=== PATIENT | male | born 1940 | race Caucasian/White ===

== ENCOUNTER 2025-08-02 16:20 | Observation (INO) | payer MEDICARE, SELFPAY ==
[2025-08-02] VITALS (9 sets, daily range): BP systolic 124–148; BP diastolic 50–78; PULSE 58–69; RESP 16–18; TEMP 36.4–37.1; O2SAT 95–100; BMI 43.0; BMI 38.9
--- NOTE | 2025-08-02 16:23 | HMH.EDGENADL ---
Discharge Plan Disposition Patient Disposition: Admitted Condition: Fair Clinical Impressions Clinical Impression: DEMARCO (acute kidney injury), Hyperkalemia Discharge ED Provider: Santa Connolly General Adult HPI <ROLO Tracey - Last Filed: 08/02/25 19:04> General Chief complaint: Weakness Stated complaint: Abnormal Labs Time Seen by Provider: 08/02/25 16:22 Mode of Arrival: EMS Source of Information: Patient and Medical Record Limitations: No Limitations History of Present Illness HPI narrative: 85-year-old male presents to the emergency department at the request of his skilled nursing facility via EMS for abnormal laboratory studies. Patient had what appears to be CBC and CMP that were drawn initially on 07/25/2025, found to have a leukocytosis of 13.6 on CBC, acute kidney injury with a BUN of 55 and creatinine 2.6, potassium was 5.8 at that time, patient had additional laboratory studies drawn to include what appears to be a basic metabolic panel, on 08/01/2025, hyperkalemia noted at 6, BUN and creatinine still significant for acute versus chronic kidney injury at 58 and 2.6 respectively patient endorses generalized weakness and fatigue for the last couple of days, denies any fever chills cough congestion shortness of breath nausea vomiting constipation diarrhea no abdominal pain no urinary symptomatology, patient does endorse some tailbone , pain, he states has been going on for quite some time. Patient is a former smoker, denies any alcohol or drug use, other past medical history consistent with hyperlipidemia, CKD stage III, prior CABG, T2DM, gout, hyperlipidemia, CAD, patient is on anticoagulant therapy with Eliquis, for atrial fibrillation, BPH, GERD, osteoarthritis, initial triage vitals are unremarkable. Please note that above description of symptoms, in this electronic medical record under categorization of recalled from ER triage doctor by RN are reflective of an initial nursing assessment, however, is not reflective of my full history and physical exam that was personally taken and clarified. Consequentially, this preceding description of symptoms, which may include the patient's categorized chief complaint in the EMR, do not reflect my personal clinical impression, and the ultimate description of history of present illness and patient stated complaints should be deferred to this section of the note. Unless stated otherwise or congruent with this section of the note, additional signs, symptoms, or incongruence should be interpreted as inaccurate with my clinical impression. Onset (ago): day(s) Related Data Home Medications ?Medication ?Instructions ?Recorded ?Confirmed acetaminophen 325 mg tablet 650 mg PO QID PRN fever/pain 08/02/25 08/02/25 allopurinol 200 mg tablet 200 mg PO DAILY 08/02/25 08/02/25 ammonium lactate 12 % lotion 1 applic topical DAILY 08/02/25 08/02/25 apixaban 2.5 mg tablet (Eliquis) 2.5 mg PO BID 08/02/25 08/02/25 atorvastatin 80 mg tablet 80 mg PO DAILY 08/02/25 08/02/25 bumetanide 1 mg tablet 1 mg PO DAILY 08/02/25 08/02/25 carvedilol 6.25 mg tablet 6.25 mg PO BID 08/02/25 08/02/25 cetirizine 10 mg tablet 10 mg PO DAILY 08/02/25 08/02/25 cholecalciferol (vitamin D3) 50 50 mcg PO DAILY 08/02/25 08/02/25 mcg (2,000 unit) tablet clopidogrel 75 mg tablet 75 mg PO DAILY 08/02/25 08/02/25 ezetimibe 10 mg tablet 10 mg PO DAILY 08/02/25 08/02/25 finasteride 5 mg tablet 5 mg PO HS 08/02/25 08/02/25 gabapentin 300 mg capsule 300 mg PO BID 08/02/25 08/02/25 insulin NPH isoph U-100 human 100 60 unit SQ BID 08/02/25 08/02/25 unit/mL (3 mL) subcutaneous pen (Novolin N FlexPen) isosorbide mononitrate 60 mg 60 mg PO DAILY 08/02/25 08/02/25 tablet,extended release 24 hr melatonin 3 mg tablet 3 mg PO HS PRN Sleep 08/02/25 08/02/25 meloxicam 15 mg tablet 15 mg PO DAILY 08/02/25 08/02/25 multivitamin 1 tab PO DAILY 08/02/25 08/02/25 omeprazole 20 mg tablet,delayed 20 mg PO DAILY 08/02/25 08/02/25 release ondansetron 4 mg disintegrating 4 mg PO Q8H 08/02/25 08/02/25 tablet oxycodone-acetaminophen 5 mg-325 1 tab PO Q6H PRN Pain (Scale Score 08/02/25 08/02/25 mg tablet 7-10) spironolactone 25 mg tablet 25 mg PO DAILY 08/02/25 08/02/25 tamsulosin 0.4 mg capsule 0.4 mg PO DAILY 08/02/25 08/02/25 telmisartan 20 mg tablet 20 mg PO DAILY 08/02/25 08/02/25 tirzepatide 2.5 mg/0.5 mL 2.5 mg SQ WEEKLY 08/02/25 08/02/25 subcutaneous pen injector (Mounjaro) tizanidine 4 mg tablet 4 mg PO HS PRN Muscle Spasm 08/02/25 08/02/25 Allergies Allergy/AdvReac Type Severity Reaction Status Date / Time No Known Allergies Allergy Verified 08/02/25 16:38 [facility] <ROLO Tracey - Last Filed: 08/02/25 19:04> [facility] Disclaimer: The information contained in this section may have been updated after the patient was seen, as this information can be updated by other users. Medical History (Updated 08/02/25 @ 22:10 by Everette Azevedo APRN) Prostate cancer History of left heart catheterization Osteoarthritis GERD (gastroesophageal reflux disease) BPH (benign prostatic hyperplasia) Afib CAD (coronary artery disease) Gout Diabetes CKD (chronic kidney disease) stage 3, GFR 30-59 ml/min Hyperlipidemia Surgical History (Updated 08/02/25 @ 21:24 by Rachelle Armstrong RN) Hx of CABG Social History (Updated 08/02/25 @ 22:03 by Laury Miner RN) Smoking Status: Former smoker alcohol intake: never current occupational status: retired Travel in the last 8 weeks?: None Have you lived/traveled outside US in past 30 days?: No Contact w/someone who lives/traveled outside US past 30 days?: No Exposure to someone with infectious disease in past 14 days?: No Do you have a fever (greater than 100.4 F or 38 C)?: No Have you tested positive for COVID-19?: No Exposed to someone with COVID-19 in past 14 days?: No Do you have a sore throat?: No Do you have a cough?: No Do you have any weakness?: No Are you experiencing any nausea/vomitting?: No Do you have any diarrhea?: No Are you experiencing any unusual bleeding?: No Do you have any muscle aches/pain?: No Do you have any abdominal pain?: No Are you experiencing loss of taste or smell?: No <ROLO Tracey - Last Filed: 08/02/25 19:04> ROS Obtained: Yes All systems reviewed & no additional complaints except as documented Physical Exam <ROLO Tracey - Last Filed: 08/02/25 19:04> General General appearance: alert and in no apparent distress Head Head exam: atraumatic and normocephalic Eye Eye exam: Present PERRL and EOMI ENT ENT exam: Present mucous membranes moist Neck Neck exam: Present normal inspection Chest Chest inspection: Present normal inspection and symmetric chest wall rise Respiratory Respiratory exam: Present normal lung sounds bilaterally; Absent respiratory distress Cardiovascular Cardiovascular exam: Present regular rate and normal rhythm Abdominal Exam Abdominal exam: Present soft; Absent tenderness, guarding, rebound or rigidity Extremities Exam Extremities exam: Present normal inspection Neurological Exam Neurological exam: Present alert and oriented X3 Psychiatric Psychiatric exam: Present normal affect Skin Skin exam: Present warm and dry Medical Decision Making <ROLO Tracey - Last Filed: 08/02/25 19:04> Medical Records Medical records reviewed: Yes I reviewed the patient's medical records. Screening: Per USPSTF and CDC recommendations, given the prevalence of disease in our region, it is our hospital?s policy to screen for HIV and viral Hepatitis for all patients aged 18 and over and those with ongoing risk factors. Edgar Inquiry Pt receiving controlled substance: No Edgar was queried for this patient: No Vital Signs: 08/02/25 16:29 08/02/25 16:30 08/02/25 16:30 Temperature 98.0 F 98.0 F Temperature Source Oral Pulse Rate 66 65 Pulse Rate [Right] 65 Respiratory Rate 16 16 Blood Pressure 134/56 L 134/56 L Blood Pressure [Right Arm] 134/56 L Blood Pressure Mean Blood Pressure Mean [Right Arm] 82 02 Sat by Pulse Oximetry 95 95 95 Oxygen Delivery Method 08/02/25 16:45 08/02/25 17:00 08/02/25 17:16 Temperature Temperature Source Pulse Rate 61 63 69 Pulse Rate [Right] Respiratory Rate 16 Blood Pressure 124/53 L 128/56 L 128/50 L Blood Pressure [Right Arm] Blood Pressure Mean 76 Blood Pressure Mean [Right Arm] 02 Sat by Pulse Oximetry 96 98 98 Oxygen Delivery Method 08/02/25 17:30 08/02/25 17:45 08/02/25 21:35 Temperature 98.8 F Temperature Source Pulse Rate 63 60 60 Pulse Rate [Right] Respiratory Rate 16 18 18 Blood Pressure 139/58 L 134/58 L 138/78 Blood Pressure [Right Arm] Blood Pressure Mean 82 76 Blood Pressure Mean [Right Arm] 02 Sat by Pulse Oximetry 99 99 Oxygen Delivery Method Room Air Lab Data Lab results reviewed: Yes I reviewed the patient's lab results. Lab Results 08/02/25 16:25: WBC 8.8, RBC 3.20 L, Hgb 9.4 L, Hct 29.5 L, MCV 92.2, MCH 29.4, MCHC 31.9, RDW 15.1, Plt Count 200, MPV 9.6, Neut % (Auto) 54.2, Lymph % (Auto) 30.9, Monroe % (Auto) 8.1, Eos % (Auto) 5.4, Baso % (Auto) 0.7, Neut # (Auto) 4.8, Lymph # (Auto) 2.7, Monroe # (Auto) 0.7, Eos # (Auto) 0.5 H, Baso # (Auto) 0.1, Sodium 141, Potassium 5.3 H, Chloride 103, Carbon Dioxide 24, Anion Gap 19.3 H, BUN 54 H, Creatinine 2.50 H, Estimated Creat Clear 21, Estimated GFR 25 L, Est GFR ( Amer) 30 L, Glucose 137 H, Calcium 9.5, Magnesium 1.7, Total Bilirubin 0.3, AST 21, ALT 14, Alkaline Phosphatase 66, Troponin I < 0.01, NT-Pro-B Natriuret Pep 228, Total Protein 7.1, Albumin 4.2, Globulin 2.9, Albumin/Globulin Ratio 1.4, Lipase 59 08/02/25 17:00: Lactate 0.5 L 08/02/25 18:04: Urine Color Yellow, Urine Appearance Clear, Urine pH 6.0, Ur Specific [place] 1.010, Urine Protein Negative, Urine Glucose (UA) Negative, Urine Ketones Negative, Urine Blood Negative, Urine Nitrate Negative, Urine Bilirubin Negative, Urine Urobilinogen 0.2, Ur Leukocyte Esterase Negative, Urine RBC None, Urine WBC Occasional, Ur Squamous Epith Cells Occasional, Amorphous Sediment Trace 08/02/25 19:53: Troponin I < 0.01 08/02/25 16:25 08/02/25 16:25 Orders (Tests/Meds): ED MEDICATIONS Generic Name Dose Route Start Last Admin Trade Name Sabine PRN Reason Stop Dose Admin Acetaminophen 650 mg 08/02/25 21:35 Acetaminophen 325mg Tab PO 09/01/25 21:34 Q4HP PRN Fever or Mild Pain (1-3) Hydrocodone Bitart/Acetaminophen 1 tab 08/02/25 21:35 Hydrocodone/Apap 5/325 Mg Tablet PO 09/01/25 21:34 Q4HP PRN Mild to Moderate Pain (1-6) Apixaban 2.5 mg 08/02/25 22:30 Apixaban 5mg Tablet PO 09/01/25 22:29 BID CELIO Lactated Ringer's 1,000 mls @ 75 mls/hr 08/02/25 21:45 Lactated Ringer's 1000 Ml Bag IV 09/01/25 21:44 .[id number] [facility] Insulin Human Lispro 0 unit 08/03/25 06:00 Humalog 100 Units/Ml 10ml Vial (Ssi) SUBCUT 09/02/25 05:59 ACHS CELIO Protocol Melatonin 5 mg 08/02/25 22:30 Melatonin 5mg Tablet PO 09/01/25 22:29 HS CELIO Ondansetron HCl 4 mg 08/02/25 21:35 Ondansetron 4mg/2ml Vial IV 09/01/25 21:34 Q8HP PRN Nausea Sodium Chloride 10 ml 08/02/25 21:35 Sodium Chloride 0.9% 10ml Flush Syringe IV 09/01/25 21:34 NEEDED PRN Maintain IV Site Discontinued Medications Generic Name Dose Route Start Last Admin Trade Name Sabine PRN Reason Stop Dose Admin Acetaminophen 1,000 mg 08/02/25 20:16 08/02/25 20:22 Acetaminophen 500mg Tab PO 08/02/25 20:17 1,000 mg ONCE ONE Administration Tramadol HCl 50 mg 08/02/25 20:16 08/02/25 20:22 Tramadol 50mg Tablet PO 08/02/25 20:17 50 mg ONCE ONE Administration ORDERS Category Date Time Status Complete Blood Count Auto Diff Stat Lab 08/02/25 16:25 Completed Comprehensive Metabolic Panel Stat Lab 08/02/25 16:25 Completed Lactic Acid Stat Lab 08/02/25 17:00 Completed Lipase Stat Lab 08/02/25 16:25 Completed Magnesium Stat Lab 08/02/25 16:25 Completed NT Pro Brain Natriuretic Pep. Stat Lab 08/02/25 16:25 Completed Troponin I Q3H Lab 08/02/25 19:53 Completed Troponin I Q3H Lab 08/02/25 22:30 Ordered Troponin I Stat Lab 08/02/25 16:25 Completed Urinalysis and Microscopic Stat Lab 08/02/25 18:04 Completed Medical Decision Narrative: 85-year-old male presents the emergency department via EMS from nursing facility for abnormal labs, generalized weakness, differential diagnose include but not limited to, cardiac arrhythmia, electrolyte disturbance, acute kidney injury, failure to thrive, acute UTI, hypovolemia among others Will obtain basic laboratory studies, EKG, lactic acid level lipase level magnesium level proBNP troponin urinalysis. CBC noted for hemoglobin hematocrit 9.4/or 9.5 respectively, which is improved from patient's previous. Mild hyperkalemia 5.3, acute kidney injury with a BUN of 54 and creatinine of 2.5. Troponin is less than 0.01, proBNP is within normal limits lipase within normal limit. I had an interactive discussion with hospitalist provider Everette Azevedo APRN on behalf of the admitting hospitalist at approximately 6:15 PM, there is consideration that the patient's DEMARCO could be baseline with acute on chronic renal failure, will attempt to reach out to skilled nursing facility/[facility] as patient was previously admitted there to determine further baseline of the patient's creatinine.\ I discussed this patient's case with attending physician Dr. Connolly at shift change, she will be assuming the patient's care/workup, disposition is pending [facility] records to assess for patient's kidney function/creatinine baseline as well as patient's urinalysis. <Santa Connolly, DO - Last Filed: 08/02/25 22:27> Vital Signs: 08/02/25 16:29 08/02/25 16:30 08/02/25 16:30 Temperature 98.0 F 98.0 F Temperature Source Oral Pulse Rate 66 65 Pulse Rate [Right] 65 Respiratory Rate 16 16 Blood Pressure 134/56 L 134/56 L Blood Pressure [Right Arm] 134/56 L Blood Pressure Mean Blood Pressure Mean [Right Arm] 82 02 Sat by Pulse Oximetry 95 95 95 Oxygen Delivery Method 08/02/25 16:45 08/02/25 17:00 08/02/25 17:16 Temperature Temperature Source Pulse Rate 61 63 69 Pulse Rate [Right] Respiratory Rate 16 Blood Pressure 124/53 L 128/56 L 128/50 L Blood Pressure [Right Arm] Blood Pressure Mean 76 Blood Pressure Mean [Right Arm] 02 Sat by Pulse Oximetry 96 98 98 Oxygen Delivery Method 08/02/25 17:30 08/02/25 17:45 08/02/25 21:35 Temperature 98.8 F Temperature Source Pulse Rate 63 60 60 Pulse Rate [Right] Respiratory Rate 16 18 18 Blood Pressure 139/58 L 134/58 L 138/78 Blood Pressure [Right Arm] Blood Pressure Mean 82 76 Blood Pressure Mean [Right Arm] 02 Sat by Pulse Oximetry 99 99 Oxygen Delivery Method Room Air Lab Data Lab Results 08/02/25 16:25: WBC 8.8, RBC 3.20 L, Hgb 9.4 L, Hct 29.5 L, MCV 92.2, MCH 29.4, MCHC 31.9, RDW 15.1, Plt Count 200, MPV 9.6, Neut % (Auto) 54.2, Lymph % (Auto) 30.9, Monroe % (Auto) 8.1, Eos % (Auto) 5.4, Baso % (Auto) 0.7, Neut # (Auto) 4.8, Lymph # (Auto) 2.7, Monroe # (Auto) 0.7, Eos # (Auto) 0.5 H, Baso # (Auto) 0.1, Sodium 141, Potassium 5.3 H, Chloride 103, Carbon Dioxide 24, Anion Gap 19.3 H, BUN 54 H, Creatinine 2.50 H, Estimated Creat Clear 21, Estimated GFR 25 L, Est GFR ( Amer) 30 L, Glucose 137 H, Calcium 9.5, Magnesium 1.7, Total Bilirubin 0.3, AST 21, ALT 14, Alkaline Phosphatase 66, Troponin I < 0.01, NT-Pro-B Natriuret Pep 228, Total Protein 7.1, Albumin 4.2, Globulin 2.9, Albumin/Globulin Ratio 1.4, Lipase 59 08/02/25 17:00: Lactate 0.5 L 08/02/25 18:04: Urine Color Yellow, Urine Appearance Clear, Urine pH 6.0, Ur Specific [place] 1.010, Urine Protein Negative, Urine Glucose (UA) Negative, Urine Ketones Negative, Urine Blood Negative, Urine Nitrate Negative, Urine Bilirubin Negative, Urine Urobilinogen 0.2, Ur Leukocyte Esterase Negative, Urine RBC None, Urine WBC Occasional, Ur Squamous Epith Cells Occasional, Amorphous Sediment Trace 08/02/25 19:53: Troponin I < 0.01 Orders (Tests/Meds): ED MEDICATIONS Generic Name Dose Route Start Last Admin Trade Name Freq PRN Reason Stop Dose Admin Acetaminophen 650 mg 08/02/25 21:35 Acetaminophen 325mg Tab PO 09/01/25 21:34 Q4HP PRN Fever or Mild Pain (1-3) Hydrocodone Bitart/Acetaminophen 1 tab 08/02/25 21:35 Hydrocodone/Apap 5/325 Mg Tablet PO 09/01/25 21:34 Q4HP PRN Mild to Moderate Pain (1-6) Apixaban 2.5 mg 08/02/25 22:30 Apixaban 5mg Tablet PO 09/01/25 22:29 BID CELIO Lactated Ringer's 1,000 mls @ 75 mls/hr 08/02/25 21:45 Lactated Ringer's 1000 Ml Bag IV 09/01/25 21:44 .[id number] [facility] Insulin Human Lispro 0 unit 08/03/25 06:00 Humalog 100 Units/Ml 10ml Vial ([facility]) SUBCUT 09/02/25 05:59 ACHS [facility] Protocol Melatonin 5 mg 08/02/25 22:30 Melatonin 5mg Tablet PO 09/01/25 22:29 HS CELIO Ondansetron HCl 4 mg 08/02/25 21:35 Ondansetron 4mg/2ml Vial IV 09/01/25 21:34 Q8HP PRN Nausea Sodium Chloride 10 ml 08/02/25 21:35 Sodium Chloride 0.9% 10ml Flush Syringe IV 09/01/25 21:34 NEEDED PRN Maintain IV Site Discontinued Medications Generic Name Dose Route Start Last Admin Trade Name Freq PRN Reason Stop Dose Admin Acetaminophen 1,000 mg 08/02/25 20:16 08/02/25 20:22 Acetaminophen 500mg Tab PO 08/02/25 20:17 1,000 mg ONCE ONE Administration Tramadol HCl 50 mg 08/02/25 20:16 08/02/25 20:22 Tramadol 50mg Tablet PO 08/02/25 20:17 50 mg ONCE ONE Administration ORDERS Category Date Time Status Complete Blood Count Auto Diff Stat Lab 08/02/25 16:25 Completed Comprehensive Metabolic Panel Stat Lab 08/02/25 16:25 Completed Lactic Acid Stat Lab 08/02/25 17:00 Completed Lipase Stat Lab 08/02/25 16:25 Completed Magnesium Stat Lab 08/02/25 16:25 Completed NT Pro Brain Natriuretic Pep. Stat Lab 08/02/25 16:25 Completed Troponin I Q3H Lab 08/02/25 19:53 Completed Troponin I Q3H Lab 08/02/25 22:30 Ordered Troponin I Stat Lab 08/02/25 16:25 Completed Urinalysis and Microscopic Stat Lab 08/02/25 18:04 Completed ECG Data Tracing #1: I reviewed this ECG and interpreted as documented below: I independently interpreted EKG at 1645 and noted sinus rhythm with first-degree AV block with NH interval of 239 ms, ventricular to [address] changes concerning for STEMI. ECG initial impression date: 08/02/25 ECG initial impression time: 16:45 Medical Decision Narrative: 85-year-old male presents the emergency department via EMS from nursing facility for abnormal labs, generalized weakness, differential diagnose include but not limited to, cardiac arrhythmia, electrolyte disturbance, acute kidney injury, failure to thrive, acute UTI, hypovolemia among others Will obtain basic laboratory studies, EKG, lactic acid level lipase level magnesium level proBNP troponin urinalysis. CBC noted for hemoglobin hematocrit 9.4/or 9.5 respectively, which is improved from patient's previous. Mild hyperkalemia 5.3, acute kidney injury with a BUN of 54 and creatinine of 2.5. Troponin is less than 0.01, proBNP is within normal limits lipase within normal limit. I had an interactive discussion with hospitalist provider Everette Azevedo APRN on behalf of the admitting hospitalist at approximately 6:15 PM, there is consideration that the patient's DEMARCO could be baseline with acute on chronic renal failure, will attempt to reach out to skilled nursing facility/[facility] as patient was previously admitted there to determine further baseline of the patient's creatinine.\ I discussed this patient's case with attending physician Dr. Connolly at shift change, she will be assuming the patient's care/workup, disposition is pending [facility] records to assess for patient's kidney function/creatinine baseline as well as patient's urinalysis. DO Mohsen: I was consulted by the HARRIET, and we discussed the complexity of the problems being addressed. I approved the treatment and management plan for this patient's care in the emergency department, thus performing a substantive portion of the medical decision making. I assumed care of the patient at 7 PM at time of departure of the HARRIET. Urinalysis is not concerning for infection. Creatinine is 2.5 with unknown baseline. This is slightly improved from his outpatient labs. Potassium is also slightly improved from outpatient labs. We discussed with the hospitalist potential admission for DEMARCO and hyperkalemia, though we do not know his renal function baseline. We then called [place] to try and get records, as he reportedly is previously followed there. As of 8 PM we still do not have records We are able to get records, and they noted the patient's baseline creatinine is around 1.3. They noticed the highest they have ever had on the record was 1.9. Given this, I feel he benefit from admission for monitoring and treatment of DEMARCO. I had an interactive discussion with the hospitalist who admitted the patient in stable condition Santa Connolly DO Critical Care <ROLO Tracey - Last Filed: 08/02/25 19:04> Critical Care Time Critical Care Time: No
--- NOTE | 2025-08-02 16:36 | ECG_ITS ---
APPROVED REPORT Exam: Resting ECG HR:63 bpm ECG Measurements Heart Rate 63 AXES AZ 239 P 66 QRSd 98 QRS -28 QT 390 T 60 QTc 397 Conclusion SINUS RHYTHM WITH FIRST DEGREE AV BLOCK INDETERMINATE AXIS LOW QRS VOLTAGE IN PRECORDIAL LEADS [QRS DEFLECTION < 1.0 mV IN CHEST LEADS] POSSIBLE ANTERIOR MYOCARDIAL INFARCTION , PROBABLY OLD [30 ms Q WAVE IN V3/V4, OR R < 0.2 mV IN V4] INFERIOR MYOCARDIAL INFARCTION , PROBABLY OLD [40+ ms Q WAVE AND/OR ST/T ABNORMALITY IN II/aVF] ABNORMAL ECG No STEMI Electronically signed by : JONI BAILEY, 08/02/2025 23:06:49
[2025-08-02 16:38] LABS: Hematocrit 29.5 % (42.0-52.0); Hemoglobin 9.4 g/dL (14.1-18.0); Immature Granulocytes % 0.7 %; Mean Corpuscular HGB Conc 31.9 g/dL (31.8-35.4); Mean Corpuscular Hemoglobin 29.4 pg (27.0-31.2); Mean Corpuscular Volume 92.2 fl (80-94); Nucleated Red Blood Cells % 0 %; Platelet Count 200 K/mm3 (142-424); Red Blood Count 3.20 M/mm3 (4.60-6.20); Red Cell Distribution Width-SD 50.8 fL; White Blood Count 8.8 K/mm3 (4.8-10.8)
--- NOTE | 2025-08-02 17:07 | PC.NURSE ---
PT PROVIDED WITH URINAL AND INFORMED OF NEED FOR SPECIMEN. CALL LIGHT WITHIN REACH.
[2025-08-02 17:17] LABS: Albumin Level 4.2 g/dl (3.5-5.0); Chloride 103 mmol/L (98-107)
[2025-08-02 17:18] LABS: Potassium 5.3 mmoL/L (3.5-5.1); Sodium 141 mmol/L (136-145)
[2025-08-02 17:20] LABS: Alanine Aminotransferase 14 U/L (12-78); Anion Gap 19.3 mEq/L (5-15); Aspartate Amino Transferase 21 U/L (17-59); Bilirubin,Total 0.3 mg/dl (0.2-1.3); Blood Urea Nitrogen 54 mg/dl (9-20); Carbon Dioxide 24 mmol/L (22.0-30.0); Creatinine Clearance Estimated 21 mL/min (50-200); Creatinine,Serum 2.50 mg/dl (0.66-1.25); Estimated Glomerular Filt Rate 25 ml/min (>60); GFR (African American) 30 ML/MIN (>60)
[2025-08-02 17:21] LABS: Albumin/Globulin Ratio 1.4 (1.1-1.8); Alkaline Phosphatase 66 U/L (38-126); Calcium 9.5 mg/dl (8.4-10.2); Globulin 2.9 g/dL (1.3-3.2); Glucose 137 mg/dl (74-100); Lipase 59 U/L (23-300); Magnesium 1.7 mg/dl (1.6-2.3); Total Protein,Serum 7.1 g/dl (6.3-8.2)
[2025-08-02 17:30] LABS: NT Pro Brain Natriuretic Pep. 228 pg/mL (0-450)
[2025-08-02 17:33] LABS: Troponin I < 0.01 ng/ml (0.00-0.034)
[2025-08-02 18:13] LABS: Microscopic, Urine URINE MICROSCOPIC (MICROSCOPIC)
[2025-08-02 18:15] LABS: Bilirubin,Urine Negative (Negative); Color,Urine YELLOW (Yellow); Glucose,Urine (UA) Negative (Negative); Ketones,Urine Negative (Negative); Leukocyte Esterase,Urine Negative (Negative); PH,Urine 6.0 (5.0-8.5); Protein,Urine Negative (Negative); Specific Gravity, Urine 1.010 (1.005-1.030); Urobilinogen,Urine 0.2 EU/dl (0.2)
--- NOTE | 2025-08-02 18:28 | PC.NURSE ---
calling [facility] for records at this time.
[2025-08-02 19:13] LABS: Amorphous Sediment,Urine Trace /lpf; Squamous Epithelial Cell,Urine Occasional #/hpf (0-5); WBC,Urine Occasional #/hpf (0-3)
[2025-08-02] MEDS: TRAMADOL 50MG TABLET 50 MG PO (20:22)
[2025-08-02] MEDS: ACETAMINOPHEN 500MG TAB 1000 MG PO (20:22)
[2025-08-02 20:25] LABS: Troponin I < 0.01 ng/ml (0.00-0.034)
--- NOTE | 2025-08-02 21:02 | PC.NURSE ---
spoke with electrician apprentice powerhouse at [facility]. per electrician apprentice powerhouse on 04/27/25, pts last admittance, pts creatinine levels were 1.9 and down trended to 1.6 and then 1.3 at discharge. pt BUN was 37 and down trended to 36 during the same admission
--- NOTE | 2025-08-02 21:27 | PC.NURSE ---
report called to Rachelle LORENZO
--- NOTE | 2025-08-02 21:51 | PC.NURSE ---
updated pts contact list: person to notify- lila richey, niece: [phone] next of kin- priyank mcnair, sister: [phone] pt pleasant and alert and oriented x4, recently moved to [facility], will be residing there permanently pt has a small open area to the left side of his gluteal fold.
--- NOTE | 2025-08-02 21:59 | EXP.HP ---
History of Present Illness *Admission Date: 08/02/25 *Reason for visit:: Abnormal lab values *History of present illness: This is an 85-year-old male who has a past medical history significant for hyperlipidemia, stage III chronic kidney disease, coronary artery disease, diabetes, gout, atrial fibrillation (currently prescribed Eliquis for management), BPH, and GERD who presents from [place] due to abnormal lab values. Patient had routine labs performed and it revealed that his creatinine was elevated to 2.5, so he was transition to [facility] for further management. While in the emergency room, repeat labs revealed a creatinine of 2.5. ER provider reached out to facility and was able to determine that patient's baseline creatinine is around 1.3. As a result, patient has been admitted for further management. During my evaluation of the patient, patient was without any symptomology. 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 Reveles). Review of patient's medication shows meloxicam, spironolactone, telmisartan, and Bumex which may be contributing to patient's DEMARCO. He is currently denying any chest pain, lightheadedness, dizziness, fever, chills, rigors, nausea, vomiting, shortness of breath, PND, orthopnea, or diarrhea. Additional pertinent vitals obtained including red blood cell count of 3.20, hemoglobin 9.4, hematocrit 29.5, potassium of 5.3, BUN 54, creatinine 2.50, GFR 25, and blood glucose 137. [facility] Disclaimer: The information contained in this section may have been updated after the patient was seen, as this information can be updated by other users. Medical History (Updated 08/02/25 @ 22:10 by Everette Azevedo APRN) Prostate cancer History of left heart catheterization Osteoarthritis GERD (gastroesophageal reflux disease) BPH (benign prostatic hyperplasia) Afib CAD (coronary artery disease) Gout Diabetes CKD (chronic kidney disease) stage 3, GFR 30-59 ml/min Hyperlipidemia Surgical History (Updated 08/02/25 @ 21:24 by Rachelle Armstrong RN) Hx of CABG Social History (Updated 08/02/25 @ 19:04 by ROLO Tracey) Smoking Status: Former smoker alcohol intake: never current occupational status: retired Travel in the last 8 weeks?: None Review of Systems Review of Systems Review of systems:: pertinent systems reviewed and negative unless documented below Constitutional Constitutional: Reports system reviewed and no additional complaints, except as documented Eyes Eyes: Reports system reviewed and no additional complaints, except as documented ENT Ears, Nose, Mouth, and Throat: Reports system reviewed and no additional complaints, except as documented *Cardiovascular Cardiovascular: Reports system reviewed and no additional complaints, except as documented *Respiratory Respiratory: Reports system reviewed and no additional complaints, except as documented *Gastrointestinal Gastrointestinal: Reports system reviewed and no additional complaints, except as documented *Genitourinary Genitourinary: Reports system reviewed and no additional complaints, except as documented *Musculoskeletal Musculoskeletal: Reports system reviewed and no additional complaints, except as documented Integumentary/Breasts Skin/Breast: Reports system reviewed and no additional complaints, except as documented *Neurologic Neurologic: Reports system reviewed and no additional complaints, except as documented Psychiatric Psychiatric: Reports system reviewed and no additional complaints, except as documented Endocrine Endocrine: Reports system reviewed and no additional complaints, except as documented Hematologic/Lymphatic Hematologic/Lymphatic: Reports system reviewed and no additional complaints, except as documented Allergic/Immunologic Allergic/Immunologic: Reports system reviewed and no additional complaints, except as documented Meds Home Medications and Allergies Home Medications ?Medication ?Instructions ?Recorded ?Confirmed ?Type acetaminophen 325 mg tablet 650 mg PO QID PRN fever/pain 08/02/25 08/02/25 History allopurinol 200 mg tablet 200 mg PO DAILY 08/02/25 08/02/25 History ammonium lactate 12 % lotion 1 applic topical DAILY 08/02/25 08/02/25 History apixaban 2.5 mg tablet (Eliquis) 2.5 mg PO BID 08/02/25 08/02/25 History atorvastatin 80 mg tablet 80 mg PO DAILY 08/02/25 08/02/25 History bumetanide 1 mg tablet 1 mg PO DAILY 08/02/25 08/02/25 History carvedilol 6.25 mg tablet 6.25 mg PO BID 08/02/25 08/02/25 History cetirizine 10 mg tablet 10 mg PO DAILY 08/02/25 08/02/25 History cholecalciferol (vitamin D3) 50 50 mcg PO DAILY 08/02/25 08/02/25 History mcg (2,000 unit) tablet clopidogrel 75 mg tablet 75 mg PO DAILY 08/02/25 08/02/25 History ezetimibe 10 mg tablet 10 mg PO DAILY 08/02/25 08/02/25 History finasteride 5 mg tablet 5 mg PO HS 08/02/25 08/02/25 History gabapentin 300 mg capsule 300 mg PO BID 08/02/25 08/02/25 History insulin NPH isoph U-100 human 100 60 unit SQ BID 08/02/25 08/02/25 History unit/mL (3 mL) subcutaneous pen (Novolin N FlexPen) isosorbide mononitrate 60 mg 60 mg PO DAILY 08/02/25 08/02/25 History tablet,extended release 24 hr melatonin 3 mg tablet 3 mg PO HS PRN Sleep 08/02/25 08/02/25 History meloxicam 15 mg tablet 15 mg PO DAILY 08/02/25 08/02/25 History multivitamin 1 tab PO DAILY 08/02/25 08/02/25 History omeprazole 20 mg tablet,delayed 20 mg PO DAILY 08/02/25 08/02/25 History release ondansetron 4 mg disintegrating 4 mg PO Q8H 08/02/25 08/02/25 History tablet oxycodone-acetaminophen 5 mg-325 1 tab PO Q6H PRN Pain (Scale Score 08/02/25 08/02/25 History mg tablet 7-10) spironolactone 25 mg tablet 25 mg PO DAILY 08/02/25 08/02/25 History tamsulosin 0.4 mg capsule 0.4 mg PO DAILY 08/02/25 08/02/25 History telmisartan 20 mg tablet 20 mg PO DAILY 08/02/25 08/02/25 History tirzepatide 2.5 mg/0.5 mL 2.5 mg SQ WEEKLY 08/02/25 08/02/25 History subcutaneous pen injector (Mounjaro) tizanidine 4 mg tablet 4 mg PO HS PRN Muscle Spasm 08/02/25 08/02/25 History New Prescriptions to Start Prescriptions: Allergies Allergy/AdvReac Type Severity Reaction Status Date / Time No Known Allergies Allergy Verified 08/02/25 16:38 Exam Data for Last 24 hours Vital signs and Labs for Last 24 Hours: Temp Pulse Resp BP Pulse Ox O2 Del Method 97.6 F 58 L 18 148/72 H 100 Room Air 08/02/25 21:50 08/02/25 21:50 08/02/25 21:50 08/02/25 21:50 08/02/25 21:50 08/02/25 21:50 Laboratory Results - last 24 hr 08/02/25 16:25: WBC 8.8, RBC 3.20 L, Hgb 9.4 L, Hct 29.5 L, MCV 92.2, MCH 29.4, MCHC 31.9, RDW 15.1, Plt Count 200, MPV 9.6, Neut % (Auto) 54.2, Lymph % (Auto) 30.9, Saunders % (Auto) 8.1, Eos % (Auto) 5.4, Baso % (Auto) 0.7, Neut # (Auto) 4.8, Lymph # (Auto) 2.7, Saunders # (Auto) 0.7, Eos # (Auto) 0.5 H, Baso # (Auto) 0.1, Sodium 141, Potassium 5.3 H, Chloride 103, Carbon Dioxide 24, Anion Gap 19.3 H, BUN 54 H, Creatinine 2.50 H, Estimated Creat Clear 21, Estimated GFR 25 L, Est GFR ( Amer) 30 L, Glucose 137 H, Calcium 9.5, Magnesium 1.7, Total Bilirubin 0.3, AST 21, ALT 14, Alkaline Phosphatase 66, Troponin I < 0.01, NT-Pro-B Natriuret Pep 228, Total Protein 7.1, Albumin 4.2, Globulin 2.9, Albumin/Globulin Ratio 1.4, Lipase 59 08/02/25 17:00: Lactate 0.5 L 08/02/25 18:04: Urine Color Yellow, Urine Appearance Clear, Urine pH 6.0, Ur Specific [place] 1.010, Urine Protein Negative, Urine Glucose (UA) Negative, Urine Ketones Negative, Urine Blood Negative, Urine Nitrate Negative, Urine Bilirubin Negative, Urine Urobilinogen 0.2, Ur Leukocyte Esterase Negative, Urine RBC None, Urine WBC Occasional, Ur Squamous Epith Cells Occasional, Amorphous Sediment Trace 08/02/25 19:53: Troponin I < 0.01 I & O for Last 24 hours: Intake & Output 07/30/25 07/31/25 08/01/25 08/02/25 23:59 23:59 23:59 23:59 Weight 112.808 kg Constitutional Constitutional: no acute distress, obese and cooperative *Routine HEENT Exam Head: Present normocephalic and atraumatic Eye: Present EOMI and PERRL ENT: Present mucous membranes moist and mucous membranes dry *Routine Neck Exam Neck: Present supple, full ROM and trachea midline *Routine Respiratory Exam Respiratory: Present CTA bilaterally, normal respiratory effort, able to speak in complete sentences and symmetric chest movement *Routine Cardiovascular Exam Cardiovascular: Present RRR, Normal S1 and Normal S2 *Routine Abdominal Exam Abdominal: Present soft and normoactive bowel sounds *Routine Rectal Exam Rectal:: deferred *Routine Genitalia Exam Genitalia:: deferred *Routine Extremities Exam Extremities: Present full ROM, pulses intact and normal capillary refill Routine Back/Spine/Pelvis Exam Back/Spine: Present full ROM *Routine Skin Exam Skin: Present intact, dry and warm *Routine Neurological Exam Neurological: Present alert, oriented X3, CN II-XII intact and moving all extremities Routine Psychiatric Exam Psychiatric: Present normal affect, cooperative, good insight and good judgment H&P: Result Impressions This is an 85-year-old male who has known stage III chronic kidney disease who had an incidental finding on his routine labs of a rising creatinine. Patient was without any signs of uremia and potassium is manageable Assessment and Plan *Assessment and plan (1) Acute on chronic renal failure: Status: Acute Qualifiers: Acute renal failure type: unspecified Chronic kidney disease stage: stage 3 (moderate) Chronic kidney disease stage 3 subtype: unspecified whether 3a or 3b Qualified Code(s): N17.9 - Acute kidney failure, unspecified; N18.30 - Chronic kidney disease, stage 3 unspecified Category: Medical Code(s): N17.9 - Acute kidney failure, unspecified; N18.9 - Chronic kidney disease, unspecified (2) Hyperkalemia: Status: Acute Category: Medical Code(s): E87.5 - Hyperkalemia (3) Anemia: Status: Acute Qualifiers: Anemia type: unspecified type Qualified Code(s): D64.9 - Anemia, unspecified Category: Medical Code(s): D64.9 - Anemia, unspecified (4) Hyperglycemia: Status: Acute Category: Medical Code(s): R73.9 - Hyperglycemia, unspecified Plan Assessment: Acute on chronic stage III renal impairment (not clear if his A or B) Hyperkalemia -Patient's baseline creatinine is closer to 1.3 - Will hold patient's ARB, meloxicam, spironolactone, Bumex - More than likely patient's DEMARCO is due to the above named medication - Most likely a prerenal disposition - Will obtain urine studies to include spot urine creatinine, spot urine protein creatinine ratio, spot urine nitrogen, spot urine sodium, and spot urine urea - Renal ultrasound - Will avoid nephrotoxic drugs - Will give gentle IV hydration LR at 75 mL an hour - Will monitor patient's creatinine - Will monitor patient's potassium if a.m. potassium is still elevated we will consider Lokelma Normocytic normochromic anemia - No obvious GI bleeding is detected - Most likely in setting of chronic illness - Will obtain anemia profile Hyperglycemia -Sliding scale insulin ACHS Plan: Admit patient to the MedSurg unit Occupational Therapy Physical therapy SCDs to bilateral lower extremity Continue patient's DOAC 1800 ADA/cardiac diet CBC/BMP daily 5 mg [place] p.o. every 4 hours for moderate pain 4 mg Zofran IV push every 8 hours for nausea Full code I will discussed this case with attending physician Dr. Smith and I look forward to more input
[2025-08-02 22:34] LABS: Sodium,Urine Random 97.0 mmol/L (30-90)
[2025-08-02] MEDS: APIXABAN 5MG TABLET 2.5 MG PO (22:40)
[2025-08-02] MEDS: LACTATED RINGERS 1000ML 1,000 ML 75 ML IV (22:40)
[2025-08-02] MEDS: MELATONIN 5MG TABLET 5 MG PO (22:40)
[2025-08-02 23:44] LABS: Troponin I < 0.01 ng/ml (0.00-0.034)
--- NOTE | 2025-08-03 | US_ITS ---
FINAL REPORT TECHNIQUE: Ultrasound images of the kidneys were obtained. CLINICAL HISTORY: Abnormal labs, renal insufficiency. FINDINGS: RENAL ULTRASOUND Limited images of the liver parenchyma demonstrate normal echogenicity. The right kidney measures 11.8 cm in length. The left kidney measures 9.0 cm in length. There is thinning of the renal cortex. There is no hydronephrosis. There are bilateral renal cysts measuring up to 2.5 cm on the right and 3.0 cm on the left. IMPRESSION: Bilateral renal cysts. Reviewed, Interpreted and Dictated by Hayden Davidson MD Transcribed by Ryann Mohr Authenticated and [facility]
--- NOTE | 2025-08-03 01:30 | PC.WOUNDNOTE ---
small open area
[2025-08-03 04:00] VITALS: BP 138/65; PULSE 56; RESP 14; TEMP 36.3; O2SAT 99; BMI 39.0
[2025-08-03 05:59] LABS: POC Glucose,Bedside 129 gm/dL (70-110)
[2025-08-03 06:00] LABS: Hematocrit 28.2 % (42.0-52.0); Hemoglobin 8.8 g/dL (14.1-18.0); Immature Granulocytes % 0.5 %; Mean Corpuscular HGB Conc 31.2 g/dL (31.8-35.4); Mean Corpuscular Hemoglobin 28.9 pg (27.0-31.2); Mean Corpuscular Volume 92.8 fl (80-94); Nucleated Red Blood Cells % 0 %; Platelet Count 168 K/mm3 (142-424); Red Blood Count 3.04 M/mm3 (4.60-6.20); Red Cell Distribution Width-SD 50.6 fL; Reticulocyte % (Auto) 2.2 % (0.9-3.2); White Blood Count 7.6 K/mm3 (4.8-10.8)
[2025-08-03 06:03] LABS: Anion Gap 11.1 mEq/L (5-15); Blood Urea Nitrogen 49 mg/dl (9-20); Calcium 9.4 mg/dl (8.4-10.2); Carbon Dioxide 24 mmol/L (22.0-30.0); Chloride 103 mmol/L (98-107); Creatinine Clearance Estimated 37 mL/min (50-200); Creatinine,Serum 2.40 mg/dl (0.66-1.25); Estimated Glomerular Filt Rate 26 ml/min (>60); GFR (African American) 31 ML/MIN (>60); Glucose 139 mg/dl (74-100); Iron 55 ug/dL (49-181); Potassium 5.1 mmoL/L (3.5-5.1); Sodium 133 mmol/L (136-145)
[2025-08-03 06:12] LABS: Total Iron Binding Capacity 268 ug/dL (261-462)
[2025-08-03 06:38] LABS: Ferritin 60.2 ng/ml (17.9-464)
[2025-08-03 06:53] LABS: Vitamin B12 508 pg/mL (239-931)
[2025-08-03 07:37] LABS: Folate 11.10 ng/mL
[2025-08-03 08:00] VITALS: BP 156/68; PULSE 61; RESP 16; TEMP 36.5; O2SAT 99
[2025-08-03 08:10] LABS: NT Pro Brain Natriuretic Pep. 156 pg/mL (0-450)
--- NOTE | 2025-08-03 08:11 | SW/DCPLANNER ---
Addendum entered by Dhara Reveles 08/03/25 11:28: I have updated Serg robles/ Marcial Sutherland that therapy recommends returning AL and pending repeat BMP at noon patient can return today. Addendum entered by Dhara Reveles 08/03/25 09:36: Per therapy patient can reutrn AL level of care. Original Note: Patient currently resides at [facility]. Updated patient information faxed to Serg robles/ Marcial Sutherland. PT/OT ordered to evaluate. Discharge date is unknown at this time. CM will continue to follow up.
[2025-08-03 08:30] VITALS: O2SAT 99
[2025-08-03] MEDS: APIXABAN 5MG TABLET 2.5 MG PO (08:53)
[2025-08-03 09:02] LABS: Adenovirus,PCR Not Detected (NotDetected); Chlamydophila Pneumoniae, PCR Not Detected (NotDetected); Coronavirus 19, PCR Not Detected (NotDetected); Coronovirus HKU1,PCR Not Detected (NotDetected); Influenza A, PCR Not Detected (NotDetected); Influenza AH1, 2009 Not Detected (NotDetected); Influenza AH1, PCR Not Detected (NotDetected); Influenza AH3,PCR Not Detected (NotDetected); Influenza B, PCR Not Detected (NotDetected); Mycoplasma Pneumoniae, PCR Not Detected (NotDetected); Parainfluenza 1, PCR Not Detected (NotDetected); Parainfluenza 2, PCR Not Detected (NotDetected); Parainfluenza 3, PCR Not Detected (NotDetected); Parainfluenza 4, PCR Not Detected (NotDetected)
--- NOTE | 2025-08-03 09:43 | HMH.PTEV ---
Physical Therapy Evaluation Rehab PT IP Evaluation Start: 08/02/25 22:03 Freq: ONCE Status: Active Protocol: Document 08/03/25 09:36 RUBY (Rec: 08/03/25 09:43 RUBY [id number]) Subjective/History History History Per H&P: This is an 85-year-old male who has a past medical history significant for hyperlipidemia, stage III chronic kidney disease, coronary artery disease, diabetes, gout, atrial fibrillation (currently prescribed Eliquis for management), BPH, and GERD who presents from [place] due to abnormal lab values. Patient had routine labs performed and it revealed that his creatinine was elevated to 2.5, so he was transition to [facility] for further management. While in the emergency room, repeat labs revealed a creatinine of 2.5. ER provider reached out to facility and was able to determine that patient's baseline creatinine is around 1.3. As a result, patient has been admitted for further management. During my evaluation of the patient, patient was without any symptomology. 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 Reveles). Review of patient's medication shows meloxicam, spironolactone, telmisartan, and Bumex which may be contributing to patient's DEMARCO. He is currently denying any chest pain, lightheadedness, dizziness, fever, chills, rigors, nausea, vomiting, shortness of breath, PND, orthopnea, or diarrhea. Additional pertinent vitals obtained including red blood cell count of 3.20, hemoglobin 9.4, hematocrit 29.5, potassium of 5.3, BUN 54, creatinine 2.50, GFR 25, and blood glucose 137. Subjective Subjective Pt reports he lives alone in an assisted living facility. Pt reports he is normally IND with ambulation with use of RW. Pt denies any falls in the past 60 days. Pt does not have to navigate stairs at home. Pt no longer drives. New diagnosis of No cancer in past 12 months? [facility] How much help from another person do you currently need... Turning from your None back to your side while in a flat bed without using bedrails? Moving from lying on None back to sitting on the side of a flat bed without using bedrails? Moving to and from a None bed to a chair ( including a wheelchair)? Standing up from a None chair using your arms? (e.g., wheelchair, bedside chair) Walking in hospital None room? Climbing 3-5 steps A little with a railing? Mobility Score 23 Mobility Level [facility] Mobility 7 Walk 25 feet or more Mobility Calculator Rehab PT IP Eval Objective Appearance Patient Behavior Appropriate,Cooperative Patient Orientation Person,Place Difficulty following none instructions Speech Pattern Clear Ambulation Patient Able to Yes Ambulate Ambulation Observation IP General Gait Decrease Stride Lngth (R),Decrease Stride Lngth (L) Pattern Observation Ambulation Distance 30 (feet) Ambulation Assistive Rolling Walker Device Ambulation Ability Supervision/Stand by Balance Ability to Arise Able, uses arms to help Sitting Balance Steady, safe Standing Balance Steady, wide stance Transfers Bed Transfer Ability Independent Sit to Stand Bed Supervision/Stand by Transfer Ability Rehab PT IP prob,goals,plan Problems Date of Evaluation: 08/03/25 Rehab Potential Rehab Potential Innapropriate for Skilled Therapy Discharge Plan PT Discharge Plan Pt demo'd slow but safe household ambulation when using a RW. Pt presents at his baseline in mobility and would not benefit from acute level PT at this time. PT recommending PT services to address generalized strength deficits. Eval Complexity Eval Charge Codes 49448 - Moderate Complexity PHYSICIAN CERTIFICATION: I certify the specified therapy services for Uday [place] are required, authorized, and reviewed every 30 days.
--- NOTE | 2025-08-03 09:53 | HMH.OTEV ---
OT Evaluation Rehab OT IP Evaluation Start: 08/02/25 22:03 Freq: ONCE Status: Active Protocol: Document 08/03/25 09:50 ELIZABETH (Rec: 08/03/25 09:53 [facility] [id number]) Rehab OT IP Assessment Subjective History Per H&P: This is an 85-year-old male who has a past medical history significant for hyperlipidemia, stage III chronic kidney disease, coronary artery disease, diabetes, gout, atrial fibrillation (currently prescribed Eliquis for management), BPH, and GERD who presents from [employer] due to abnormal lab values. Patient had routine labs performed and it revealed that his creatinine was elevated to 2.5, so he was transition to [facility] for further management. While in the emergency room, repeat labs revealed a creatinine of 2.5. ER provider reached out to facility and was able to determine that patient's baseline creatinine is around 1.3. As a result, patient has been admitted for further management. During my evaluation of the patient, patient was without any symptomology. 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 Reveles). Review of patient's medication shows meloxicam, spironolactone, telmisartan, and Bumex which may be contributing to patient's DEMARCO. He is currently denying any chest pain, lightheadedness, dizziness, fever, chills, rigors, nausea, vomiting, shortness of breath, PND, orthopnea, or diarrhea. Additional pertinent vitals obtained including red blood cell count of 3.20, hemoglobin 9.4, hematocrit 29.5, potassium of 5.3, BUN 54, creatinine 2.50, GFR 25, and blood glucose 137. Subjective Pt reports he lives at [facility] on assisted living are. Pt reports he is normally IND with functional transfers with use of RW. Pt denies any falls in the past 60 days. Pt also reports he is independent with ADLs, but staff assist as needed Pt is dependent upon staff for completion of all IADLs. Pt no longer drives. Objective Patient Orientation Person,Place,Birthday Right Upper WFL Extremity Gross ROM Left Upper Extremity WFL Gross ROM Bed Mobility bed mobility-scooting,bed mobility - supine/sit Assist Level Supervision/Stand by Transfer Training Sit/Stand Transfer Assist Level Supervision/Stand by Chair Transfer Supervision/Stand by Ability Chair Transfer Sit to/from Ambulatory Technique Chair Transfer Rolling Walker Assistive Devices Lower Body Dressing Standby Assistance Ability Rehab OT IP prob,goals,plan Problems Date of Evaluation: 08/03/25 Rehab Potential Rehab Potential Innapropriate for Skilled Therapy Discharge Plan OT Discharge Plan Pt appears to be at his baseline with functional transfers and ADL independence. Pt can return back to assisted living at [facility] once he is medically stable per physician. Eval Complexity Eval Charge Codes 16839 - Moderate Complexity PHYSICIAN CERTIFICATION: I certify the specified therapy services for Uday [place] are required, authorized, and reviewed every 30 days.
[2025-08-03 12:12] LABS: POC Glucose,Bedside 138 gm/dL (70-110)
[2025-08-03 12:27] LABS: Anion Gap 12.4 mEq/L (5-15); Blood Urea Nitrogen 46 mg/dl (9-20); Calcium 10.0 mg/dl (8.4-10.2); Carbon Dioxide 22 mmol/L (22.0-30.0); Chloride 103 mmol/L (98-107); Creatinine Clearance Estimated 43 mL/min (50-200); Creatinine,Serum 2.10 mg/dl (0.66-1.25); Estimated Glomerular Filt Rate 30 ml/min (>60); GFR (African American) 37 ML/MIN (>60); Glucose 137 mg/dl (74-100); Potassium 5.4 mmoL/L (3.5-5.1); Sodium 132 mmol/L (136-145)
--- NOTE | 2025-08-03 13:56 | EXP.DC.SUM ---
General Admission date:: 08/02/25 HPI HPI HPI: This is an 85-year-old male who has a past medical history significant for hyperlipidemia, stage III chronic kidney disease, coronary artery disease, diabetes, gout, atrial fibrillation (currently prescribed Eliquis for management), BPH, and GERD who presents from [facility] due to abnormal lab values. Patient had routine labs performed and it revealed that his creatinine was elevated to 2.5, so he was transition to [facility] for further management. While in the emergency room, repeat labs revealed a creatinine of 2.5. ER provider reached out to facility and was able to determine that patient's baseline creatinine is around 1.3. As a result, patient has been admitted for further management. During my evaluation of the patient, patient was without any symptomology. According to family member at the bedside, patient has not seen his primary cash control specialist in 6-7 years (Dr. Reveles). Review of patient's medication shows meloxicam, spironolactone, telmisartan, and Bumex which may be contributing to patient's DEMARCO. He is currently denying any chest pain, lightheadedness, dizziness, fever, chills, rigors, nausea, vomiting, shortness of breath, PND, orthopnea, or diarrhea. Additional pertinent vitals obtained including red blood cell count of 3.20, hemoglobin 9.4, hematocrit 29.5, potassium of 5.3, BUN 54, creatinine 2.50, GFR 25, and blood glucose 137. Hospital Course Hospital Course Hospital Course: Uday Dallas is a 85-year-old male who presented with generalized weakness and was admitted for DEMARCO on CKD. #Generalized weakness #DEMARCO on CKD #Hypertension ? Patient presented with generalized weakness, initial creatinine 2.4. Baseline around 1.3, but unclear as to when this was. ? Workup otherwise unremarkable for weakness including infectious. Respiratory panel negative for viral infection. ? Patient denies poor p.o. intake, nausea/vomiting/diarrhea. ? Medication review reveals patient is on meloxicam 15 mg daily, likely contributing to DEMARCO. Also takes Bumex 1 mg daily, spironolactone 25 mg, telmisartan 20 mg which were held during admission due to likely contribution to DEMARCO. ? Creatinine improved to 2.1 with gentle IV fluid resuscitation. Patient is tolerating p.o. intake without issues. ? DEMARCO will likely improve, though creatinine 1.3 baseline timeline is unclear at this time. It is reported patient has CKD. ? Discontinue meloxicam 15 mg, restart Bumex 1 mg on 08/05/2025. Restart spironolactone 25 mg on 08/06/2025, and restart telmisartan 20 mg if necessary for blood pressure. #Diabetes ? Continue home insulin. Hold home Marty patient is not eating appropriately. Total time spent on discharge: 32 minutes on chart review, counseling, documentation, and direct care with patient. Exam Data for Last 24 hours Vital signs and Labs for Last 24 Hours: Temp Pulse Resp BP Pulse Ox O2 Del Method 97.7 F 61 16 156/68 H 99 Room Air 08/03/25 08:00 08/03/25 08:00 08/03/25 08:00 08/03/25 08:00 08/03/25 08:30 08/03/25 13:00 Laboratory Results - last 24 hr 08/02/25 16:25: WBC 8.8, RBC 3.20 L, Hgb 9.4 L, Hct 29.5 L, MCV 92.2, MCH 29.4, MCHC 31.9, RDW 15.1, Plt Count 200, MPV 9.6, Neut % (Auto) 54.2, Lymph % (Auto) 30.9, [place] % (Auto) 8.1, Eos % (Auto) 5.4, Baso % (Auto) 0.7, Neut # (Auto) 4.8, Lymph # (Auto) 2.7, [place] # (Auto) 0.7, Eos # (Auto) 0.5 H, Baso # (Auto) 0.1, Sodium 141, Potassium 5.3 H, Chloride 103, Carbon Dioxide 24, Anion Gap 19.3 H, BUN 54 H, Creatinine 2.50 H, Estimated Creat Clear 21, Estimated GFR 25 L, Est GFR ( Amer) 30 L, Glucose 137 H, Calcium 9.5, Magnesium 1.7, Total Bilirubin 0.3, AST 21, ALT 14, Alkaline Phosphatase 66, Troponin I < 0.01, NT-Pro-B Natriuret Pep 228, Total Protein 7.1, Albumin 4.2, Globulin 2.9, Albumin/Globulin Ratio 1.4, Lipase 59 08/02/25 17:00: Lactate 0.5 L 08/02/25 18:04: Urine Color Yellow, Urine Appearance Clear, Urine pH 6.0, Ur Specific [place] 1.010, Urine Protein Negative, Urine Glucose (UA) Negative, Urine Ketones Negative, Urine Blood Negative, Urine Nitrate Negative, Urine Bilirubin Negative, Urine Urobilinogen 0.2, Ur Leukocyte Esterase Negative, Urine RBC None, Urine WBC Occasional, Ur Squamous Epith Cells Occasional, Amorphous Sediment Trace, Ur Random Urea Nitrogn 256, Urine Creatinine 34 08/02/25 18:04: Urine Creatinine 34, Urine Microalbumin 6.700, Microalb/Creat Ratio 19.7, Urine Sodium 97.0 H, Urine Total Protein 8.0 08/02/25 19:53: Troponin I < 0.01 08/02/25 23:08: Troponin I < 0.01 08/03/25 04:52: WBC 7.6, RBC 3.04 L, Hgb 8.8 L, Hct 28.2 L, MCV 92.8, MCH 28.9, MCHC 31.2 L, RDW 14.9, Plt Count 168, MPV 10.0, Neut % (Auto) 53.8, Lymph % (Auto) 31.8, Henderson % (Auto) 7.2, Eos % (Auto) 5.8, Baso % (Auto) 0.9, Neut # (Auto) 4.1, Lymph # (Auto) 2.4, Henderson # (Auto) 0.5, Eos # (Auto) 0.4, Baso # (Auto) 0.1, Retic Count (auto) 2.2, Sodium 133 L, Potassium 5.1, Chloride 103, Carbon Dioxide 24, Anion Gap 11.1, BUN 49 H, Creatinine 2.40 H, Estimated Creat Clear 37, Estimated GFR 26 L, Est GFR ( Amer) 31 L, Glucose 139 H, Calcium 9.4, Iron 55, TIBC 268, Iron Saturation 20.95538, Ferritin 60.2, NT-Pro-B Natriuret Pep 156, Vitamin B12 508, Folate 11.10 08/03/25 05:52: POC Glucose 129 H 08/03/25 08:55: Chlamy pneumoniae PCR Not detected, Adenovirus (PCR) Not detected, B. pertussis DNA (PCR) Not detected, Coronavirus OC43 (PCR) Not detected, Coronavirus HKU1 (PCR) Not detected, Coronavirus 229E (PCR) Not detected, SARS-CoV-2 (PCR) Not detected, Coronavirus NL63 (PCR) Not detected, Human Metapneumovir PCR Not detected, Influenza A (H1) PCR Not detected, Influ A (H1N1/09) PCR Not detected, Influenza A (H3) PCR Not detected, Influenza Type A (PCR) Not detected, Influenza Type B (PCR) Not detected, M. pneumoniae (PCR) Not detected, Parainfluenza 1 (PCR) Not detected, Parainfluenza 2 (PCR) Not detected, Parainfluenza 3 (PCR) Not detected, Parainfluenza 4 (PCR) Not detected, RSV (PCR) Not detected, Entero/Rhino (PCR) Not detected 08/03/25 12:05: POC Glucose 138 H 08/03/25 12:10: Sodium 132 L, Potassium 5.4 H, Chloride 103, Carbon Dioxide 22, Anion Gap 12.4, BUN 46 H, Creatinine 2.10 H, Estimated Creat Clear 43, Estimated GFR 30 L, Est GFR ( Amer) 37 L, Glucose 137 H, Calcium 10.0 I & O for Last 24 hours: Intake & Output 07/31/25 08/01/25 08/02/25 08/03/25 23:59 23:59 23:59 23:59 Intake Total 960 / 960 Output Total 0 / 0 300 / 300 Balance 0 / 0 660 / 660 Weight 112.808 kg 112.808 kg Constitutional Constitutional: no acute distress *Routine HEENT Exam Head: Present normocephalic Eye: Present EOMI and PERRL ENT: Present mucous membranes moist *Routine Neck Exam Neck: Present supple; Absent lymphadenopathy *Routine Respiratory Exam Respiratory: Present CTA bilaterally *Routine Cardiovascular Exam Cardiovascular: Present RRR *Routine Abdominal Exam Abdominal: Present soft and normoactive bowel sounds; Absent tenderness *Routine Extremities Exam Extremities: Absent cyanosis, clubbing or edema *Routine Skin Exam Skin: Present warm; Absent rash *Routine Neurological Exam Neurological: Present alert and oriented X3 Results Data Completed and Pending Labs on day of discharge: Labs from last 24 hours 08/03/25 08/03/25 08/03/25 12:10 12:05 08:55 WBC RBC Hgb Hct MCV MCH MCHC RDW Plt Count MPV Neut % (Auto) Lymph % (Auto) [place] % (Auto) Eos % (Auto) Baso % (Auto) Neut # (Auto) Lymph # (Auto) [place] # (Auto) Eos # (Auto) Baso # (Auto) Retic Count (auto) Sodium 132 L Potassium 5.4 H Chloride 103 Carbon Dioxide 22 Anion Gap 12.4 BUN 46 H Creatinine 2.10 H Estimated Creat Clear 43 Estimated GFR 30 L Est GFR ( Amer) 37 L Glucose 137 H POC Glucose 138 H Lactate Calcium 10.0 Magnesium Iron TIBC Iron Saturation Ferritin Total Bilirubin AST ALT Alkaline Phosphatase Troponin I NT-Pro-B Natriuret Pep Total Protein Albumin Globulin Albumin/Globulin Ratio Lipase Vitamin B12 Folate Urine Color Urine Appearance Urine pH Ur Specific [place] Urine Protein Urine Glucose (UA) Urine Ketones Urine Blood Urine Nitrate Urine Bilirubin Urine Urobilinogen Ur Leukocyte Esterase Urine RBC Urine WBC Ur Squamous Epith Cells Amorphous Sediment Ur Random Urea Nitrogn Urine Creatinine Urine Microalbumin Microalb/Creat Ratio Urine Sodium Urine Total Protein Chlamy pneumoniae PCR Not detected Adenovirus (PCR) Not detected B. pertussis DNA (PCR) Not detected Coronavirus OC43 (PCR) Not detected Coronavirus HKU1 (PCR) Not detected Coronavirus 229E (PCR) Not detected SARS-CoV-2 (PCR) Not detected Coronavirus NL63 (PCR) Not detected Human Metapneumovir PCR Not detected Influenza A (H1) PCR Not detected Influ A (H1N1/09) PCR Not detected Influenza A (H3) PCR Not detected Influenza Type A (PCR) Not detected Influenza Type B (PCR) Not detected M. pneumoniae (PCR) Not detected Parainfluenza 1 (PCR) Not detected Parainfluenza 2 (PCR) Not detected Parainfluenza 3 (PCR) Not detected Parainfluenza 4 (PCR) Not detected RSV (PCR) Not detected Entero/Rhino (PCR) Not detected 08/03/25 08/03/25 08/02/25 05:52 04:52 23:08 WBC 7.6 RBC 3.04 L Hgb 8.8 L Hct 28.2 L MCV 92.8 MCH 28.9 MCHC 31.2 L RDW 14.9 Plt Count 168 MPV 10.0 Neut % (Auto) 53.8 Lymph % (Auto) 31.8 [place] % (Auto) 7.2 Eos % (Auto) 5.8 Baso % (Auto) 0.9 Neut # (Auto) 4.1 Lymph # (Auto) 2.4 [place] # (Auto) 0.5 Eos # (Auto) 0.4 Baso # (Auto) 0.1 Retic Count (auto) 2.2 Sodium 133 L Potassium 5.1 Chloride 103 Carbon Dioxide 24 Anion Gap 11.1 BUN 49 H Creatinine 2.40 H Estimated Creat Clear 37 Estimated GFR 26 L Est GFR ( Amer) 31 L Glucose 139 H POC Glucose 129 H Lactate Calcium 9.4 Magnesium Iron 55 TIBC 268 Iron Saturation 20.63039 Ferritin 60.2 Total Bilirubin AST ALT Alkaline Phosphatase Troponin I < 0.01 NT-Pro-B Natriuret Pep 156 Total Protein Albumin Globulin Albumin/Globulin Ratio Lipase Vitamin B12 508 Folate 11.10 Urine Color Urine Appearance Urine pH Ur Specific [place] Urine Protein Urine Glucose (UA) Urine Ketones Urine Blood Urine Nitrate Urine Bilirubin Urine Urobilinogen Ur Leukocyte Esterase Urine RBC Urine WBC Ur Squamous Epith Cells Amorphous Sediment Ur Random Urea Nitrogn Urine Creatinine Urine Microalbumin Microalb/Creat Ratio Urine Sodium Urine Total Protein Chlamy pneumoniae PCR Adenovirus (PCR) B. pertussis DNA (PCR) Coronavirus OC43 (PCR) Coronavirus HKU1 (PCR) Coronavirus 229E (PCR) SARS-CoV-2 (PCR) Coronavirus NL63 (PCR) Human Metapneumovir PCR Influenza A (H1) PCR Influ A (H1N1/09) PCR Influenza A (H3) PCR Influenza Type A (PCR) Influenza Type B (PCR) M. pneumoniae (PCR) Parainfluenza 1 (PCR) Parainfluenza 2 (PCR) Parainfluenza 3 (PCR) Parainfluenza 4 (PCR) RSV (PCR) Entero/Rhino (PCR) 08/02/25 08/02/25 08/02/25 19:53 18:04 18:04 WBC RBC Hgb Hct MCV MCH MCHC RDW Plt Count MPV Neut % (Auto) Lymph % (Auto) [place] % (Auto) Eos % (Auto) Baso % (Auto) Neut # (Auto) Lymph # (Auto) [place] # (Auto) Eos # (Auto) Baso # (Auto) Retic Count (auto) Sodium Potassium Chloride Carbon Dioxide Anion Gap BUN Creatinine Estimated Creat Clear Estimated GFR Est GFR ( Amer) Glucose POC Glucose Lactate Calcium Magnesium Iron TIBC Iron Saturation Ferritin Total Bilirubin AST ALT Alkaline Phosphatase Troponin I < 0.01 NT-Pro-B Natriuret Pep Total Protein Albumin Globulin Albumin/Globulin Ratio Lipase Vitamin B12 Folate Urine Color Yellow Urine Appearance Clear Urine pH 6.0 Ur Specific [place] 1.010 Urine Protein Negative Urine Glucose (UA) Negative Urine Ketones Negative Urine Blood Negative Urine Nitrate Negative Urine Bilirubin Negative Urine Urobilinogen 0.2 Ur Leukocyte Esterase Negative Urine RBC None Urine WBC Occasional Ur Squamous Epith Cells Occasional Amorphous Sediment Trace Ur Random Urea Nitrogn 256 Urine Creatinine 34 34 Urine Microalbumin 6.700 Microalb/Creat Ratio 19.7 Urine Sodium 97.0 H Urine Total Protein 8.0 Chlamy pneumoniae PCR Adenovirus (PCR) B. pertussis DNA (PCR) Coronavirus OC43 (PCR) Coronavirus HKU1 (PCR) Coronavirus 229E (PCR) SARS-CoV-2 (PCR) Coronavirus NL63 (PCR) Human Metapneumovir PCR Influenza A (H1) PCR Influ A (H1N1/09) PCR Influenza A (H3) PCR Influenza Type A (PCR) Influenza Type B (PCR) M. pneumoniae (PCR) Parainfluenza 1 (PCR) Parainfluenza 2 (PCR) Parainfluenza 3 (PCR) Parainfluenza 4 (PCR) RSV (PCR) Entero/Rhino (PCR) 08/02/25 08/02/25 17:00 16:25 WBC 8.8 RBC 3.20 L Hgb 9.4 L Hct 29.5 L MCV 92.2 MCH 29.4 MCHC 31.9 RDW 15.1 Plt Count 200 MPV 9.6 Neut % (Auto) 54.2 Lymph % (Auto) 30.9 [place] % (Auto) 8.1 Eos % (Auto) 5.4 Baso % (Auto) 0.7 Neut # (Auto) 4.8 Lymph # (Auto) 2.7 [place] # (Auto) 0.7 Eos # (Auto) 0.5 H Baso # (Auto) 0.1 Retic Count (auto) Sodium 141 Potassium 5.3 H Chloride 103 Carbon Dioxide 24 Anion Gap 19.3 H BUN 54 H Creatinine 2.50 H Estimated Creat Clear 21 Estimated GFR 25 L Est GFR ( Amer) 30 L Glucose 137 H POC Glucose Lactate 0.5 L Calcium 9.5 Magnesium 1.7 Iron TIBC Iron Saturation Ferritin Total Bilirubin 0.3 AST 21 ALT 14 Alkaline Phosphatase 66 Troponin I < 0.01 NT-Pro-B Natriuret Pep 228 Total Protein 7.1 Albumin 4.2 Globulin 2.9 Albumin/Globulin Ratio 1.4 Lipase 59 Vitamin B12 Folate Urine Color Urine Appearance Urine pH Ur Specific [place] Urine Protein Urine Glucose (UA) Urine Ketones Urine Blood Urine Nitrate Urine Bilirubin Urine Urobilinogen Ur Leukocyte Esterase Urine RBC Urine WBC Ur Squamous Epith Cells Amorphous Sediment Ur Random Urea Nitrogn Urine Creatinine Urine Microalbumin Microalb/Creat Ratio Urine Sodium Urine Total Protein Chlamy pneumoniae PCR Adenovirus (PCR) B. pertussis DNA (PCR) Coronavirus OC43 (PCR) Coronavirus HKU1 (PCR) Coronavirus 229E (PCR) SARS-CoV-2 (PCR) Coronavirus NL63 (PCR) Human Metapneumovir PCR Influenza A (H1) PCR Influ A (H1N1/09) PCR Influenza A (H3) PCR Influenza Type A (PCR) Influenza Type B (PCR) M. pneumoniae (PCR) Parainfluenza 1 (PCR) Parainfluenza 2 (PCR) Parainfluenza 3 (PCR) Parainfluenza 4 (PCR) RSV (PCR) Entero/Rhino (PCR) DS: Diagnosis Discharge Diagnosis (1) Acute on chronic renal failure: Status: Acute Code(s): N17.9 - Acute kidney failure, unspecified; N18.9 - Chronic kidney disease, unspecified Qualifiers: Acute renal failure type: unspecified Chronic kidney disease stage: stage 3 (moderate) Chronic kidney disease stage 3 subtype: unspecified whether 3a or 3b Qualified Code(s): N17.9 - Acute kidney failure, unspecified; N18.30 - Chronic kidney disease, stage 3 unspecified (2) Hyperkalemia: Status: Acute Code(s): E87.5 - Hyperkalemia (3) Anemia: Status: Acute Code(s): D64.9 - Anemia, unspecified Qualifiers: Anemia type: unspecified type Qualified Code(s): D64.9 - Anemia, unspecified (4) Hyperglycemia: Status: Acute Code(s): R73.9 - Hyperglycemia, unspecified Meds Home Medications and Allergies Home Medications ?Medication ?Instructions ?Recorded ?Confirmed ?Type acetaminophen 325 mg tablet 650 mg PO QID PRN fever/pain 08/02/25 08/02/25 History allopurinol 200 mg tablet 200 mg PO DAILY 08/02/25 08/02/25 History ammonium lactate 12 % lotion 1 applic topical DAILY 08/02/25 08/02/25 History apixaban 2.5 mg tablet (Eliquis) 2.5 mg PO BID 08/02/25 08/02/25 History atorvastatin 80 mg tablet 80 mg PO DAILY 08/02/25 08/02/25 History bumetanide 1 mg tablet 1 mg PO DAILY 08/02/25 08/02/25 History carvedilol 6.25 mg tablet 6.25 mg PO BID 08/02/25 08/02/25 History cetirizine 10 mg tablet 10 mg PO DAILY 08/02/25 08/02/25 History cholecalciferol (vitamin D3) 50 50 mcg PO DAILY 08/02/25 08/02/25 History mcg (2,000 unit) tablet clopidogrel 75 mg tablet 75 mg PO DAILY 08/02/25 08/02/25 History ezetimibe 10 mg tablet 10 mg PO DAILY 08/02/25 08/02/25 History finasteride 5 mg tablet 5 mg PO HS 08/02/25 08/02/25 History gabapentin 300 mg capsule 300 mg PO BID 08/02/25 08/02/25 History insulin NPH isoph U-100 human 100 60 unit SQ BID 08/02/25 08/02/25 History unit/mL (3 mL) subcutaneous pen (Novolin N FlexPen) isosorbide mononitrate 60 mg 60 mg PO DAILY 08/02/25 08/02/25 History tablet,extended release 24 hr melatonin 3 mg tablet 3 mg PO HS PRN Sleep 08/02/25 08/02/25 History multivitamin 1 tab PO DAILY 08/02/25 08/02/25 History omeprazole 20 mg tablet,delayed 20 mg PO DAILY 08/02/25 08/02/25 History release ondansetron 4 mg disintegrating 4 mg PO Q8H 08/02/25 08/02/25 History tablet oxycodone-acetaminophen 5 mg-325 1 tab PO Q6H PRN Pain (Scale Score 08/02/25 08/02/25 History mg tablet 7-10) spironolactone 25 mg tablet 25 mg PO DAILY 08/02/25 08/02/25 History tamsulosin 0.4 mg capsule 0.4 mg PO DAILY 08/02/25 08/02/25 History telmisartan 20 mg tablet 20 mg PO DAILY 08/02/25 08/02/25 History tirzepatide 2.5 mg/0.5 mL 2.5 mg SQ WEEKLY 08/02/25 08/02/25 History subcutaneous pen injector (Mounjaro) tizanidine 4 mg tablet 4 mg PO HS PRN Muscle Spasm 08/02/25 08/02/25 History New Prescriptions to Start Prescriptions: Allergies Allergy/AdvReac Type Severity Reaction Status Date / Time No Known Allergies Allergy Verified 08/02/25 16:38 Discharge Plan Disposition Patient Disposition: er Intermediate Care Fac Condition: Fair Discharge Order Discharge Orders: Discharge Order (Routine); Ordered 08/03/25 Ordered By: Isai Smith Follow up Plan Follow up with: Delon Rubio MD [Referring, Nephrology] - Enter time for follow up Prescriptions/Medication Reconciliation: Continued multivitamin Tablet 1 tab PO DAILY atorvastatin 80 mg tablet 80 mg PO DAILY acetaminophen 325 mg Tablet 650 mg PO QID PRN (Reason: fever/pain) carvedilol 6.25 mg tablet 6.25 mg PO BID ammonium lactate 12 % Lotion 1 applic TOPICAL DAILY cetirizine 10 mg Tablet 10 mg PO DAILY tizanidine 4 mg tablet 4 mg PO HS PRN (Reason: Muscle Spasm) melatonin 3 mg Tablet 3 mg PO HS PRN (Reason: Sleep) clopidogrel 75 mg tablet 75 mg PO DAILY oxycodone-acetaminophen 5-325 mg tablet 1 tab PO Q6H PRN (Reason: Pain (Scale Score 7-10)) isosorbide mononitrate 60 mg tablet extended release 24 hr 60 mg PO DAILY tamsulosin 0.4 mg capsule 0.4 mg PO DAILY gabapentin 300 mg capsule 300 mg PO BID ondansetron 4 mg tablet,disintegrating 4 mg PO Q8H finasteride 5 mg tablet 5 mg PO HS ezetimibe 10 mg tablet 10 mg PO DAILY Novolin N FlexPen 100 unit/mL (3 mL) insulin pen 60 unit SQ BID Patient Comments: [NO ORIGINAL SIG] omeprazole 20 mg Tablet,Delayed Release (Dr/Ec) 20 mg PO DAILY cholecalciferol (vitamin D3) 50 mcg (2,000 unit) Tablet 50 mcg PO DAILY Eliquis 2.5 mg tablet 2.5 mg PO BID Mounjaro 2.5 mg/0.5 mL pen injector 2.5 mg SQ WEEKLY Patient Comments: [NO ORIGINAL SIG] allopurinol 200 mg Tablet 200 mg PO DAILY Held spironolactone 25 mg tablet 25 mg PO DAILY Hold Instructions: Resume on 08/06/25. Hold this medication until Wednesday due to DEMARCO. bumetanide 1 mg tablet 1 mg PO DAILY Hold Instructions: Resume on 08/05/25. Hold this medication until Wednesday. telmisartan 20 mg tablet 20 mg PO DAILY Hold Instructions: Resume on 08/06/25. Hold this medication until Wednesday due to DEMARCO, reevaluate needs based on blood pressure after then. Discontinued meloxicam 15 mg tablet 15 mg PO DAILY Problem Reconciliation Problems Reviewed?: Yes Patient Discharge Instructions Patient Instructions: DI for Kidney Failure, DI for Hyperkalemia, DI for Hyperglycemia in Adults Print Language: Georgian Providers Primary Care Provider: Oswaldo Reveles Provider: Isai Smith Attending Provider: Isai Smith
[2025-08-03 16:02] LABS: Thyroid Stimulating Hormone 30.00 uIU/mL (0.465-4.68)
[2025-08-03 17:21] LABS: Free T4 (Free Thyroxine) 0.52 ng/dl (0.78-2.19)
--- NOTE | 2025-08-17 11:44 | CARE MANAGER ---
Patient's niece contacted me yesterday. She states that the patient was scheduled for a nephrology appointment in [place] at time of discharge and the patient could not get to [place]. I found that it was recommended patient get scheduled with Dr. Rubio here, but must have been accidentally sent as a referral to [facility] in [place]. I contacted the [place] office per request of daughter and cancelled the appointment there. I have a left a message at [phone] to schedule an appointment with Dr. Rubio at [facility]. I also provided the niece with the phone number as well.
== END 2025-08-03 16:01 | disposition home or self-care (01) ==
LOC: ER 21:07 → 2ND 21:07
PROVIDERS: Nurse Practitioner Family; Physician Assistant; Admitting Provider Student in an Organized Health Care Education/Training Program; Emergency Provider Emergency Medicine; PCP Internal Medicine; Visit Provider Student in an Organized Health Care Education/Training Program
DX: N17.9 Acute kidney failure, unspecified (principal); N18.30 Chronic kidney disease, stage 3 unspecified; E87.5 Hyperkalemia; D64.9 Anemia, unspecified; R73.9 Hyperglycemia, unspecified; N40.0 Benign prostatic hyperplasia without lower urinary tract symptoms; I25.10 Atherosclerotic heart disease of native coronary artery without angina pectoris; M10.9 Gout, unspecified; E78.5 Hyperlipidemia, unspecified; Z85.46 Personal history of malignant neoplasm of prostate; Z95.1 Presence of aortocoronary bypass graft; Z87.891 Personal history of nicotine dependence; Z79.899 Other long term (current) drug therapy; Z79.890 Hormone replacement therapy; Z79.01 Long term (current) use of anticoagulants; N28.1 Cyst of kidney, acquired; I44.0 Atrioventricular block, first degree
CPT/HCPCS: 0223U; 36415; 76770; 80048; 80053; 81001; 82043; 82570; 82607; 82728; 82746; 82962; 83540; 83550; 83605; 83690; 83735; 83880; 84156; 84439; 84443; 84484; 84540; 84630; 85025; 85044; 93005; 97162; 97166; 99285; G0378; J7120

== ENCOUNTER 2025-08-07 13:20 | Outpatient (CLI) | payer MEDICARE, SELFPAY ==
[2025-08-07 14:37] LABS: Alanine Aminotransferase 16 U/L (12-78); Albumin Level 4.0 g/dl (3.5-5.0); Albumin/Globulin Ratio 1.7 (1.1-1.8); Alkaline Phosphatase 91 U/L (38-126); Anion Gap 12.9 mEq/L (5-15); Aspartate Amino Transferase 18 U/L (17-59); Bilirubin,Total 0.3 mg/dl (0.2-1.3); Blood Urea Nitrogen 38 mg/dl (9-20); Calcium 9.3 mg/dl (8.4-10.2); Carbon Dioxide 22 mmol/L (22.0-30.0); Chloride 103 mmol/L (98-107); Creatinine,Serum 1.80 mg/dl (0.66-1.25); Estimated Glomerular Filt Rate 36 ml/min (>60); GFR (African American) 44 ML/MIN (>60); Globulin 2.3 g/dL (1.3-3.2); Glucose 316 mg/dl (74-100); Potassium 4.9 mmoL/L (3.5-5.1); Sodium 133 mmol/L (136-145); Total Protein,Serum 6.3 g/dl (6.3-8.2)
== END 2025-08-07 23:59 | disposition home or self-care (01) ==
LOC: LAB 13:21
PROVIDERS: PCP Internal Medicine; Visit Provider Nurse Practitioner Family
DX: I25.10 Atherosclerotic heart disease of native coronary artery without angina pectoris (principal); N18.32 Chronic kidney disease, stage 3b; E11.42 Type 2 diabetes mellitus with diabetic polyneuropathy; E11.22 Type 2 diabetes mellitus with diabetic chronic kidney disease
CPT/HCPCS: 80053